=== PATIENT | female | born 1990 | race Hispanic/Latino ===

== ENCOUNTER 2017-10-06 13:12 | Emergency (ER) | payer MEDICAID ==
[2017-10-06 13:26] VITALS: BP 127/64
[2017-10-06 14:08] LABS: Bacteria,Urine 1+ /HPF (Negative); Bilirubin,Urine NEG (Negative); Blood,Urine NEG (Negative); Color,Urine Yellow (Yellow); Mucus,Urine 2+ /HPF
--- NOTE | 2017-10-06 14:58 | Emergency Department Report ---
Blank Doc - Documentation Documentation: Patient is a 27-year-old female presenting with lower abdominal cramping for the last 2-3 days. Patient denies any vaginal bleeding or spotting. Patient is approximately 6 weeks and has not had ultrasound at this time. Patient has some mild nausea but denies any fevers chills cough congestion and again the only symptom that she really complaining about is abdominal cramps. Patient is worried about ectopic because she has a implanted control device that has side effect of ectopic pregnancies. Patient states she's never had abdominal cramps with her previous pregnancies. Patient will be sent for an ultrasound quality done a urinalysis.
--- NOTE | 2017-10-06 18:03 | Ultrasound Report ---
FINAL REPORT EXAM: US OB < = 14 WEEKS FETUS HISTORY: cramping with . LMP unknown. Patient states an Essure device was placed in 2012. Beta HCG quantitation level 161, 014 TECHNIQUE: Ultrasound of the pelvis using transabdominal and transvaginal imaging PRIORS: None. FINDINGS: Uterus: Uterus is enlarged in size and normal and homogeneous in echogenicity without focal fibroid formation. The uterus measures 10.4 x 7.2 x 8.4 cm in size. There is a single early viable intrauterine gestation noted. Intrauterine gestation: There is a single intrauterine gestation identified with both a pole and yolk sac. heart rate is monitored at 158 BPM using M-mode doppler. [place]-rump length measurement of 1.76 cm corresponds to estimated age 8 weeks 2 days with EDC 05/16/2018. There is a small 1.0 cm subchorionic hemorrhage identified noted along the anterior right side with a gestational sac. Ovaries: Both ovaries appear normal in size and echogenicity with normal blood flow bilaterally. The right ovary measures 2.6 x 1.8 x 1.3 cm and the left ovary measures 2.5 x 2.0 x 2.1 cm in size. On the right, Doppler: PSV 21.0 cm/sec and RI: 0.58 with visible venous flow. On the left, Doppler: PSV 21.0 cm/sec and RI: 0.52 with visible venous flow. Other: There is no evidence for solid adnexal mass is seen. There is no free fluid in the cul-de-sac. IMPRESSION: Single intrauterine viable with an approximate age of 8 weeks 2 days.
--- NOTE | 2017-10-06 18:03 | Ultrasound Report ---
FINAL REPORT EXAM: US OB TRANSVAGINAL HISTORY: cramping with . LMP unknown. Patient states an Essure device was placed in 2012. Beta HCG quantitation level 161, 014 TECHNIQUE: Ultrasound of the pelvis using transabdominal and transvaginal imaging PRIORS: None. FINDINGS: Uterus: Uterus is enlarged in size and normal and homogeneous in echogenicity without focal fibroid formation. The uterus measures 10.4 x 7.2 x 8.4 cm in size. There is a single early viable intrauterine gestation noted. Intrauterine gestation: There is a single intrauterine gestation identified with both a pole and yolk sac. heart rate is monitored at 158 BPM using M-mode doppler. [place]-rump length measurement of 1.76 cm corresponds to estimated age 8 weeks 2 days with EDC 05/16/2018. There is a small 1.0 cm subchorionic hemorrhage identified noted along the anterior right side with a gestational sac. Ovaries: Both ovaries appear normal in size and echogenicity with normal blood flow bilaterally. The right ovary measures 2.6 x 1.8 x 1.3 cm and the left ovary measures 2.5 x 2.0 x 2.1 cm in size. On the right, Doppler: PSV 21.0 cm/sec and RI: 0.58 with visible venous flow. On the left, Doppler: PSV 21.0 cm/sec and RI: 0.52 with visible venous flow. Other: There is no evidence for solid adnexal mass is seen. There is no free fluid in the cul-de-sac. IMPRESSION: Single intrauterine viable with an approximate age of 8 weeks 2 days.
--- NOTE | 2017-10-06 18:08 | Emergency Department Report ---
HPI - General Chief Complaint: Abdominal Pain Time Seen by Provider: 10/06/17 14:45 - HPI HPI: Patient is a 27-year-old female presenting with lower abdominal cramping for the last 2-3 days. Patient denies any vaginal bleeding or spotting. Patient states that she is about 7 weeks' and had a confirmation test a couple weeks ago at a clinic. Patient states that with other pregnancies she is not used to having lower pelvic cramping and got worried after she has been having lower pelvic cramping for the past 2-3 days. She states that 5 years ago she had a sure procedure done to her bilateral tubes. She denies fevers/chills or any other problems ED Past Medical Hx - Past Medical History Hx Hypertension: No Hx Congestive Heart Failure: No Hx Diabetes: No Hx Deep Vein Thrombosis: No Hx Renal Disease: No Hx Sickle Cell Disease: No Hx Seizures: No Hx Asthma: No Hx COPD: No Hx HIV: No - Social History Smoking Status: Never Smoker Substance Use Type: None - Medications Home Medications: Home Medications Medication Instructions Recorded Confirmed Last Taken Type Ciprofloxacin HCl [Cipro] 250 mg PO BID #14 tablet 09/15/14 Unknown Rx traMADol [Ultram] 50 mg PO Q6HR PRN #15 tablet 09/15/14 Unknown Rx Acetaminophen [Tylenol Extra 500 mg PO Q6H #30 tablet 10/06/17 Unknown Rx Strength] Nitrofurantoin Monohyd/M-Cryst 100 mg PO BID #10 capsule 10/06/17 Unknown Rx [Macrobid 100 mg Capsule] 21/Iron Fu/Folic Acid 1 each PO DAILY #40 tablet 10/06/17 Unknown Rx [ Complete Caplet] ED Review of Systems ROS: Stated complaint: CRAMPING Other details as noted in HPI Constitutional: denies: chills, fever Eyes: denies: eye pain, eye discharge, vision change ENT: denies: ear pain, throat pain Respiratory: denies: cough, shortness of breath, wheezing Cardiovascular: denies: chest pain, palpitations Endocrine: no symptoms reported Gastrointestinal: denies: abdominal pain, nausea, diarrhea Genitourinary: denies: urgency, dysuria, discharge Musculoskeletal: denies: back pain, joint swelling, arthralgia Skin: denies: rash, lesions Neurological: denies: headache, weakness, paresthesias Psychiatric: denies: anxiety, depression Hematological/Lymphatic: denies: easy bleeding, easy bruising Physical Exam - Physical Exam Vital Signs: Vital Signs 10/06/17 13:23 Temperature 98.5 F Pulse Rate 78 Respiratory 18 Rate Blood Pressure 127/64 O2 Sat by Pulse 100 Oximetry Physical Exam: GENERAL: Alert and oriented x3, no apparent distress, Normal Gait, atraumatic. HEAD: Head is normocephalic and a-traumatic. NECK: Supple. Non edematous, No carotid bruits. No lymphadenopathy or thyromegaly. No C-spine tenderness LUNGS: Symetrical with respiration, No wheezing, no rales or crackles, CTAB. HEART: S1, S2 present, regular rate and rhythm without murmur, no rubs, no gallops. Non tender to palpation ABDOMEN: No organomegaly was noted,Positive bowel sounds, soft, and non- distended. . Nontender to palpation on all Quadrants, NO CVA tenderness. BACK: Full range of motion, no spinal tenderness, nontender to palpation. NEUROLOGIC: The patient is cooperative with no focal neurologic deficits.. Normal speech. Normal sensation in bilateral upper and lower extremities, No loss of sensation, SKIN: Warm and dry, No lesions, No ulceration or induration present. ED Course Vital Signs 10/06/17 13:23 Temperature 98.5 F Pulse Rate 78 Respiratory 18 Rate Blood Pressure 127/64 O2 Sat by Pulse 100 Oximetry ED Medical Decision Making - Radiology Data Radiology results: report reviewed, image reviewed EXAM: US OB lt; = 14 WEEKS FETUS HISTORY: cramping with . LMP unknown. Patient states an Essure device was placed in 2012. Beta HCG quantitation level 161, 014 TECHNIQUE: Ultrasound of the pelvis using transabdominal and transvaginal imaging PRIORS: None. FINDINGS: Uterus: Uterus is enlarged in size and normal and homogeneous in echogenicity without focal fibroid formation. The uterus measures 10.4 x 7.2 x 8.4 cm in size. There is a single early viable intrauterine gestation noted. Intrauterine gestation: There is a single intrauterine gestation identified with both a pole and yolk sac. heart rate is monitored at 158 BPM using M-mode doppler. [place]-rump length measurement of 1.76 cm corresponds to estimated age 8 weeks 2 days with EDC 05/16/2018. There is a small 1.0 cm subchorionic hemorrhage identified noted along the anterior right side with a gestational sac. Ovaries: Both ovaries appear normal in size and echogenicity with normal blood flow bilaterally. The right ovary measures 2.6 x 1.8 x 1.3 cm and the left ovary measures 2.5 x 2.0 x 2.1 cm in size. On the right, Doppler: PSV 21.0 cm/sec and RI: 0.58 with visible venous flow. On the left, Doppler: PSV 21.0 cm/sec and RI: 0.52 with visible venous flow. Other: There is no evidence for solid adnexal mass is seen. There is no free fluid in the cul-de-sac. IMPRESSION: Single intrauterine viable with an approximate age of 8 weeks 2 days. Transcribed By: [facility] Dictated By: GILES FUENTES MD Electronically Authenticated By: GILES FUENTES MD Signed Date/Time: 10/06/17 2739 - Medical Decision Making 27-year-old female presents with normal intrauterine with some cramping ED course: Urinalysis positive for UTI Ultrasound shows normal intrauterine as dictated above I discussed his findings with the patient. I discussed the patient stay hydrated 8-10 glasses of water per day to avoid uterine cramping and I discussed the follow up with [facility] . vital signs are normal patient understands all instructions. Critical care attestation.: If time is entered above; I have spent that time in minutes in the direct care of this critically ill patient, excluding procedure time. ED Disposition Clinical Impression: UTI (urinary tract infection) Normal IUP (intrauterine ) on ultrasound Qualifiers: Trimester: first trimester Qualified Code(s): Z34.91 - Encounter for supervision of normal , unspecified, first trimester Disposition: DC-01 TO HOME OR SELFCARE Is pt being admited?: No Does the pt Need Aspirin: No Condition: Stable Instructions: (ED), Dehydration (ED), Abdominal Pain in ( ED) Additional Instructions: Make sure to follow up with the obgyn as discussed. Take all your medications as you've been prescribed. If you have any worsening symptoms or develop new symptoms please return to ED immediately. Prescriptions: Acetaminophen [Tylenol Extra Strength] 500 mg PO Q6H #30 tablet Nitrofurantoin Monohyd/M-Cryst [Macrobid 100 mg Capsule] 100 mg PO BID #10 capsule Iron Fu/Folic Acid [ Complete Caplet] 1 each PO DAILY #40 tablet Referrals: [facility] [Primary Care Provider] - 3-5 Days LISE SALINAS MD [Referring] - 3-5 Days [facility] [Provider Group] - 3-5 Days [facility] [Provider Group] - 3-5 Days Forms: Accompanied Note, Work/School Release Form(ED) Time of Disposition: 18:24
== END 2017-10-06 19:20 | disposition home or self-care (01) ==
LOC: ED 13:12
DX: O23.41 Unspecified infection of urinary tract in pregnancy, first trimester (principal); Z3A.08 8 weeks gestation of pregnancy
CPT/HCPCS: 36415; 76801; 76817; 81001; 84702; 99284

== ENCOUNTER 2018-04-04 11:53 | Outpatient (CLI) | payer MEDICAID ==
[2018-04-04] MEDS ORDERED: LACTATED RINGERS 500 ML IV ONE (11:59)
[2018-04-04] MEDS ORDERED: BRETHINE SUB-Q ONE (12:35)
[2018-04-04 12:58] LABS: Bacteria,Urine 1+ /HPF (Negative); Bilirubin,Urine NEG (Negative); Blood,Urine NEG (Negative); Color,Urine Yellow (Yellow); Protein,Urine <15 mg/dL mg/dL (Negative); Urobilinogen,Urine < 2.0 mg/dL (<2.0)
[2018-04-04 12:59] LABS: Amphetamine Screen,Urine PRESUMPTIVE NEGATIVE; Benzodiazepines Screen,Urine PRESUMPTIVE NEGATIVE; Cannabinoid Screen,Urine PRESUMPTIVE NEGATIVE; Cocaine Screen,Urine PRESUMPTIVE NEGATIVE; Methadone Screen,Urine PRESUMPTIVE NEGATIVE; Opiate Screen,Urine PRESUMPTIVE NEGATIVE
[2018-04-04 13:37] VITALS: BP 106/55
--- NOTE | 2018-04-05 06:25 | Event Note ---
Date: 04/04/18 L&D triage visit 04/04/18 27 year old presented to L&D triage at 34 weeks gestation due to contractions. Patient states she has no history of . She has 4 living children, all born vaginally at term without complications. Patient denies complications with this . She receives her care at [facility] [place] [facility]. Patient states she had intercourse within the past 24 hours. She also states she has been on her feet more than usual. Patient reports active movement. She denies leaking of fluid or vaginal bleeding. She denies falls or abdominal trauma. She states contractions began about 2 hours prior to arrival; she states contractions are mild and irregular. She denies any constant or severe pain. Patient is well appearing, alert, oriented, NAD. Afebrile, VSS. Abdomen soft, nontender. EFM shows irregular contractions; contractions palpate mild. SVE: FT/thick/high/posterior. No leaking of fluid or vaginal bleeding seen. NST is reactive. Patient received 1 liter of Lactated Ringers solution IV in triage. She also received Brethine 0.25 mg SQ. Urinalysis and UDS unremarkable. Contractions resolved and patient was discharged home in good condition. Discussed signs of labor and warning signs of with patient. Advised patient to keep her scheduled follow up visit with [facility] tomorrow.
== END 2018-04-04 14:00 | disposition home or self-care (01) ==
LOC: TRG 11:53
PROVIDERS: ATTEND Obstetrics & Gynecology
DX: O47.03 False labor before 37 completed weeks of gestation, third trimester (principal); Z3A.34 34 weeks gestation of pregnancy
CPT/HCPCS: 59025; 80307; 81001; J3105; J7120